=== PATIENT | male | born 1965 | race Caucasian/White ===

== ENCOUNTER 2018-03-20 06:29 | Inpatient (IN) ==
[2018-03-13 17:32] LABS: Appearance,Urine CLEAR; Bilirubin,Urine NEG (NEG); Color,Urine YELLOW; Glucose,Urine (UA) NEGATIVE (NEG); Leukocyte Esterase,Urine NEG /uL (NEG); Protein,Urine NEG (NEG); Specific Gravity,Urine 1.025 (1.000-1.035); Urine Blood NEG mg/dL (<0.03); Urobilinogen,Urine NEG (NEG)
[2018-03-13 18:04] LABS: Blood Urea Nitrogen 19 mg/dl (6-20)
[2018-03-13 18:27] LABS: Basophils # (Auto) 0 K/mcL (0.0-0.3); Basophils % (Auto) 0.5 % (0.0-2.0); Eosinophils # (Auto) 0.1 K/mcL (0.0-0.7); Eosinophils % (Auto) 1.5 % (0.0-7.0); Granulocytes % (Auto) 61.4 % (38.0-78.0); Lymphocytes # (Auto) 2.6 K/mcL (1.5-4.8); Lymphocytes % (Auto) 29.3 % (15.5-49.0); Mean Cell Volume 92.5 fL (80.0-100.0); Mean Corpuscular HGB Conc 33.9 g/dL (31.0-36.0); Mean Corpuscular Hemoglobin 31.4 pg (26.0-34.0); Monocytes # (Auto) 0.6 K/mcL (0.1-0.9); Monocytes % (Auto) 7.3 % (1.0-12.0); Platelet Count 240 K/mcL (140-440); RBC 4.84 M/mcL (4.50-5.90); Red Cell Distribution Width 12.2 % (11.5-14.5)
[2018-03-20] MEDS ORDERED: PREGABALIN 75 MG CAPSULE PO SCH (07:00)
[2018-03-20] MEDS ORDERED: CELECOXIB 200 MG CAPSULE PO SCH (07:00)
[2018-03-20] MEDS ORDERED: ceFAZolin 1 GM VIAL IV SCH (07:00)
[2018-03-20] MEDS ORDERED: oxyCODONE 10 MG TAB.ER.12H PO SCH (07:00)
[2018-03-20] MEDS ORDERED: 0.9 % SODIUM CHLORIDE 9 ML, KETOROLAC 30 MG, ROPIVACAINE HCL/PF 49.5 ML, EPINEPHrine 0.... IJ SCH (07:00)
[2018-03-20] MEDS ORDERED: ACETAMINOPHEN 500 MG TABLET PO SCH (07:00)
[2018-03-20] MEDS ORDERED: PROPOFOL 200 MG/20 ML VIAL IV ONE (09:00)
[2018-03-20] MEDS ORDERED: MIDAZOLAM 5 MG/5 ML VIAL IV ONE (09:00)
[2018-03-20] MEDS ORDERED: DEXAMETHASONE 10 MG/ML VIAL IV ONE (09:00)
[2018-03-20] MEDS ORDERED: TRANEXAMIC ACID 1,000 MG/10 ML VIAL IV ONE (09:00)
[2018-03-20] MEDS ORDERED: fentaNYL 100 MCG/2 ML VIAL IV ONE (09:00)
[2018-03-20] MEDS ORDERED: ROPIVACAINE HCL/PF 20 ML VIAL IJ ONE (09:00)
[2018-03-20] MEDS ORDERED: LIDOCAINE HCL/PF 100 MG/5 ML SYRINGE IV ONE (09:00)
[2018-03-20] MEDS ORDERED: ONDANSETRON 4 MG/2 ML VIAL IV ONE (09:00)
[2018-03-20] MEDS ORDERED: GENTAMICIN SULFATE 800 MG/20 ML VIAL IR ONE (09:52)
[2018-03-20] MEDS ORDERED: IPRATROPIUM/ALBUTEROL 3 ML AMPUL.NEB NEB PRN (10:22)
[2018-03-20] MEDS ORDERED: ONDANSETRON 4 MG/2 ML VIAL IV PRN ×2 (10:22→10:42)
[2018-03-20] MEDS ORDERED: NALOXONE HCL 0.4 MG/ML VIAL IV PRN (10:22)
[2018-03-20] MEDS ORDERED: HYDROmorphone 2 MG/ML VIAL IV PRN ×2 (10:22→10:42)
[2018-03-20] MEDS ORDERED: FLUMAZENIL 0.1 MG/ML ML IV PRN (10:22)
[2018-03-20] MEDS ORDERED: METHOCARBAMOL 1,000 MG/10 ML VIAL IV PRN (10:22)
[2018-03-20] MEDS ORDERED: ATROPINE SULFATE 0.4 MG/ML VIAL IV PRN (10:22)
[2018-03-20] MEDS ORDERED: diphenhydrAMINE 50 MG/ML VIAL IV PRN (10:22)
[2018-03-20] MEDS ORDERED: PROMETHAZINE 25 MG/ML VIAL IV PRN (10:22)
[2018-03-20] MEDS ORDERED: ePHEDrine 50 MG/ML AMPUL IV PRN (10:22)
[2018-03-20] MEDS ORDERED: MEPERIDINE 25 MG/ML SYRINGE IV PRN (10:22)
[2018-03-20] MEDS ORDERED: METOPROLOL TARTRATE 5 MG/5 ML VIAL IV PRN (10:22)
[2018-03-20] MEDS ORDERED: PROMETHAZINE 25 MG/ML VIAL IM PRN (10:22)
[2018-03-20] MEDS ORDERED: LACTATED RINGERS 1,000 ML IV SCH (10:30)
[2018-03-20] MEDS ORDERED: POLYETHYLENE GLYCOL 3350 17 GM PACKET PO PRN (10:42)
[2018-03-20] MEDS ORDERED: FLEETS ADULT ENEMA PR PRN (10:42)
[2018-03-20] MEDS ORDERED: BENZOCAINE/MENTHOL 1 LOZENGE PO PRN (10:42)
[2018-03-20] MEDS ORDERED: TRANEXAMIC ACID 1,000 MG/10 ML VIAL IV SCH (10:42)
[2018-03-20] MEDS ORDERED: ACETAMINOPHEN 325 MG TABLET PO PRN (10:42)
[2018-03-20] MEDS ORDERED: BISACODYL 10 MG SUPP.RECT PR PRN (10:42)
[2018-03-20] MEDS ORDERED: MAGNESIUM HYDROXIDE 30 ML ORAL.SUSP PO PRN (10:42)
--- NOTE | 2018-03-20 10:42 | Brief Operative Note ---
Date of procedure: 03/20/18 Pre-op diagnosis: right knee djd Post-op diagnosis: same Procedure: right tka with vane robotics Grafts/Implants: Yes Anesthesia: GETA Complications: none Surgeon: Rito Amaral Knitter Wire Mesh: Rogers Morgan Estimated blood loss (cc): 50 Tourniquet Time (Minutes): 53 Specimens Removed/Pathology: none sent Condition: stable Disposition: PACU
[2018-03-20] MEDS: fentaNYL 100 MCG/2 ML VIAL IV PRN ×2 (11:10→11:17)
--- NOTE | 2018-03-20 11:30 | Operative Note ---
DATE OF OPERATION: 03/20/2018 PREOPERATIVE DIAGNOSIS: Right knee degenerative arthritis. POSTOPERATIVE DIAGNOSIS: Right knee degenerative arthritis. PROCEDURE: Right total knee arthroplasty using the Kel robot. SURGEON: Rito Amaral MD PLANT CARE WORKER: Rogers Morgan PA-C ANESTHESIA: General LMA anesthesia. COMPLICATIONS: None. DESCRIPTION OF PROCEDURE: The patient was brought to the operating room and put to sleep with general LMA anesthesia. Once asleep, the patient had the right leg sterilely prepped and draped in the usual sterile fashion. A timeout was performed confirming the operative site and the midline incision was made. Pins above and below the knee were made. We inspected the joint showing some significant arthritis in the medial femoral condyle with a varus knee of greater than 6 degrees. The knee hyperextended greater than 9 degrees with patience instability. At this point, we proceeded with the total knee arthroplasty. The [employer] robot was used to register the center of hip rotation. We registered the thirty points on the femur and the tibia, intra-articular pins, medial and lateral malleolus. Once done, we then brought the robot in and made our tibial cut after balancing the knee. The pre-balance position was 9 to 10 degrees hyperextension, 6 to 7 degrees of varus malformation. Then the robot was brought in to remove these bony fragments and we removed the remnants of the meniscus. In a trial of the components that we templated prior the 11 seemed to fit the best. There was no complication. We irrigated thoroughly and then cemented into place the femoral and tibial tray, placed an 11 mm poly, resurfaced the patella with eccentric 36 mm patellar button measuring 24 mm before we cut this to 14 and then placed the button. No complications. We irrigated and the knee perfectly aligned. We irrigated, closed the capsule medially with a #1 Stratafix x2, closed the skin with #1 Stratafix and adhesive closure. The patient tolerated this well without complication. [facility]:samm Job ID: [id number] Doc ID: [id number] Rito Amaral MD
--- NOTE | 2018-03-20 11:48 | XRay Report ---
CLINICAL INFORMATION: Post-Op Total Knee COMPARISON: None. FINDINGS: Total knee prosthesis is anatomically aligned. No osseous abnormality. Soft tissue swelling seen as expected. IMPRESSION: Negative Interpreted and Authenticated by: Ken Lou 03/20/18
[2018-03-20] MEDS: 0.45 % SODIUM CHLORIDE 1,000 ML IV SCH ×2 (12:11→21:52)
[2018-03-20] MEDS: KETOROLAC 15 MG/ML VIAL IV SCH ×3 (12:29→23:48)
[2018-03-20] MEDS: 0.9 % SODIUM CHLORIDE 10 ML SYRINGE IV SCH ×2 (13:53→21:57)
[2018-03-20] MEDS: ceFAZolin 1 GM VIAL IV SCH ×2 (16:45→23:48)
[2018-03-20] MEDS: HYDROcodone/APAP 10/325MG TABLET PO PRN ×3 (17:41→23:48)
[2018-03-20] MEDS ORDERED: TEMAZEPAM 15 MG CAPSULE PO PRN (21:00)
[2018-03-20] MEDS ORDERED: SENNOSIDES 1 TABLET PO SCH (21:00)
[2018-03-20] MEDS: DOCUSATE SODIUM 100 MG CAPSULE PO SCH (21:48)
[2018-03-20] MEDS: ASPIRIN 325 MG ENTERIC COATED TABLET PO SCH (21:48)
[2018-03-21] MEDS: HYDROcodone/APAP 10/325MG TABLET PO PRN ×4 (03:58→12:20)
[2018-03-21] MEDS: 0.9 % SODIUM CHLORIDE 10 ML SYRINGE IV SCH (05:21)
[2018-03-21] MEDS: KETOROLAC 15 MG/ML VIAL IV SCH ×2 (05:22→11:36)
--- NOTE | 2018-03-21 07:29 | Orthopedic Progress Note ---
Subjective Patient information: Note initiated : 03/21/18 at 7:28 am Service Date, if different from initiated Date: [] Patient: Raúl Chapman 52 y/o M admitted on 03/20/18 for Right Robotic Total Knee Arthroplasty. Chief Complaint: [Pt is stable this morning on post operative day 1 without any significant concerns or complaints. Patients vital signs have remained stable. Patients dressing is dry and is grossly intact from a neurovascular and motor standpoint. Patients 10 point ROS is otherwise negative. ] Objective Vital signs: Vital Signs Temp Pulse Pulse Resp BP BP Pulse Ox 03/21/18 07:00 98 03/21/18 06:57 96.4 F L 72 18 126/82 95 03/21/18 04:00 97.9 F 61 20 115/72 96 03/21/18 00:00 97.8 F 53 L 20 119/74 96 03/20/18 19:43 98.1 F 102 H 22 125/81 94 03/20/18 15:56 98.1 F 16 131/67 97 03/20/18 15:00 96 03/20/18 12:33 144/79 95 03/20/18 12:25 95 03/20/18 12:18 141/83 95 03/20/18 12:03 97.6 F 143/88 96 03/20/18 11:47 98.0 F 77 13 148/87 100 03/20/18 11:32 80 14 147/92 99 03/20/18 11:17 97.7 F 83 14 154/85 100 03/20/18 11:12 87 14 130/102 100 03/20/18 11:07 86 15 137/78 100 03/20/18 11:02 98.2 F 76 16 150/87 99 Intake and Output 03/20/18 03/21/18 03/21/18 21:59 05:59 13:59 Intake Total 720 / 720 800 / 800 Output Total 2225 / 2225 1500 / 1500 Balance -1505 / -1505 -700 / -700 Intake: Oral 720 / 720 800 / 800 Output: Urine Catheter Amount 650 / 650 Void Amount 1575 / 1575 1500 / 1500 Other: Meal Dinner Percent of Meal Consumed 100% Feeding Ability Independent Urine Appearance Clear Clear Straight Clear Urine Color Straw Straw Straight Straw Urine Odor Normal Normal Weight 174 lb 8 oz Intake & Output: Intake & Output 03/20/18 03/21/18 03/21/18 21:59 05:59 13:59 Intake Total 720 / 720 800 / 800 Output Total 2225 / 2225 1500 / 1500 Balance -1505 / -1505 -700 / -700 Weight 174 lb 8 oz Intake: Oral 720 / 720 800 / 800 Output: Urine Catheter Amount 650 / 650 Void Amount 1575 / 1575 1500 / 1500 Other: Meal Dinner Percent of Meal Consumed 100% Feeding Ability Independent Urine Appearance Clear Clear Straight Clear Urine Color Straw Straw Straight Straw Urine Odor Normal Normal Incision: Yes healing Incision clean and dry: Yes Dressing: Yes clean Weight bearing status: full Neurological exam IM: Yes motor sensory intact, Yes neurovascular intact Extremities exam IM: Yes Foot pink and warm, Yes neurovascular intact - Labs CBC & BMP: 03/21/18 05:05 03/13/18 15:32 Labs: 03/21/18 03/13/18 05:05 15:33 Hgb 15.2 Hct 40.6 L 44.8
--- NOTE | 2018-03-21 07:31 | Discharge Summary ---
Ortho Discharge - TKA - Patient Instructions Diet: Regular Diet Activity: activity as tolerated, weight bearing as tolerated Total Knee Protocol: For Total Knee: Start ROM BHANU with stationary bike or rocking chair. Work on gaining full extension of knee. Posterior dislocation precautions provided. Hip abductor strengthening and gait training instructions provided. Apply Cryocuff as instructed. Dressing Care: May shower in 2 days - Follow Up Plan Follow Up Appointments: Rogers Morgan PA-C [Physician [employer]] - 04/06/18 10:40 am Disposition: Home, Self-Care Prognosis: Good Rehab Potential: Good I certify that the patient requires SNF services: No Overall status at discharge: patient is progressing back to baseline - Orders For Discharge Prescriptions: Aspirin [Ecotrin] 325 mg PO BID #60 tab.ec Docusate Sodium [Colace] 100 mg PO BID #60 capsule HYDROcodone/APAP 10/325MG [[place] 10-325Mg] 1 - 2 tab PO Q4HP PRN #75 tablet PRN Reason: Pain Level 3-6
[2018-03-21] MEDS: ASPIRIN 325 MG ENTERIC COATED TABLET PO SCH (08:17)
[2018-03-21] MEDS: DOCUSATE SODIUM 100 MG CAPSULE PO SCH (08:17)
== END 2018-03-21 12:30 | disposition home or self-care (01) | DRG 470 ==
LOC: MEDSUR 06:29
PROVIDERS: ADMIT Orthopaedic Surgery; ATTEND Orthopaedic Surgery
CPT/HCPCS: 62322; 97161; C1713; C1776; J0690; J1100; J1170; J1580; J1885; J2001; J2175; J2250; J2405; J2795; J2800; J3010; J7120